=== PATIENT | female | born 1955 | race Caucasian/White ===

== ENCOUNTER → 2018-07-05 14:56 | Outpatient (CLI) | payer MEDICARE, OTHER, SELFPAY ==
--- NOTE | 2018-07-05 15:01 | BI_ITS ---
MAMMOGRAPHY - BILATERAL SCREENING REASON FOR EXAM: Female, 63 years old. Routine annual screening examination. PERTINENT HISTORY: NO FAM HX CURRENT BC X 20 YRS GAINED 10# NO SX NO FAM HX CURRENT BC X 20 YRS GAINED 10# NO SX TECHNIQUE: Digital bilateral breast phillip (3D mammographic acquisition) in the CC and MLO projections. 2-D mediolateral oblique (MLO) and craniocaudad (CC) views of both breasts were obtained. CAD: Full Field Digital Mammography with Computer Added Detection was performed. COMPARISON: Aug 14 2016 7:42am. Aug 13 2015 12:27pm FINDINGS: Breast Composition: There are scattered areas of fibroglandular density. There are no dominant masses or suspicious calcifications. No other significant abnormalities are identified. BI/SCREENING MAMM (CAD), BILAT IMPRESSION: Stable bilateral screening mammogram. Yearly follow-up mammogram recommended. (A) ASSESSMENT CATEGORY: BIRADS Category 2: Benign. A letter regarding these results will be sent to the patient by the facility within 30 days. Approximately 10% of breast cancers are not detected by mammography. A normal mammogram should not delay biopsy of a clinically suspicious abnormality. [id number] Electronically Signed: Amie Barnes MD at 12:50 EDT Tel , Service support ,
--- NOTE | 2018-07-05 15:11 | BD_ITS ---
STUDY: DUAL ENERGY X-RAY ABSORPTIOMETRY / DXA REASON FOR EXAM: Female, 63 years old. Postmenopausal screening TECHNIQUE: Bone Mineral Density (BMD) measurements of lumbar spine and bilateral hips were obtained. COMPARISON: None. FINDINGS: Lumbar Spine (L1-L4): g/cm2 (1.327) / T-score (1.2) / Z-score (2.8) Findings are suggestive of normal bone density with a low fracture risk. Left Femur Total: g/cm2 (1.191) / T-score (1.5) / Z-score (2.7) Left Femoral Neck: g/cm2 (0.979) / T-score (-0.4) / Z-score (1.0) Right Femur Total: g/cm2 (1.272 ) /(T score 2.1) / Z-score (3.3) Right Femoral Neck: g/cm2 (1.032) / T-score (0.0) / Z-score (1.4) BD/Dexa Bone Density Study IMPRESSION: The patient is considered normal as outlined below according to World Js Organization (WHO) criteria with a low fracture risk. Reference Information: The T-score is the number of standard deviations above or below the standard which is normal for young adults at their peak bone mineral density. The World Health Organization (WHO) interprets the T-scores as follows: Above -1 Normal bone density Between -1 and -2.5 Osteopenia Equal to / or below -2.5 Osteoporosis As a practical clinical guideline, osteopenia may be graded as follows: Mild -1 through -1.5 Moderate -1.6 through -2.0 Severe -2.1 through -2.4 The Z-score is the number of standard deviations above or below age-matched controls. A Z-score of less than -1.5 would be considered abnormal. References: 1. NIH Osteoporosis and Related Bone Diseases http://www.osteo.org 2. International Society for Clinical Densitometry http://www.iscd.org 3. National Osteoporosis Foundation http://www.nof.org Electronically Signed: Luke Eldridge MD at 12:31 EDT , Service support ,
== END ==
PROVIDERS: Family Provider Nurse Practitioner; PCP Nurse Practitioner; Referring Provider Nurse Practitioner; Visit Provider Nurse Practitioner
DX: Z78.0 Asymptomatic menopausal state (principal); Z12.31 Encounter for screening mammogram for malignant neoplasm of breast
CPT/HCPCS: 77063; 77067; 77080

== ENCOUNTER → 2019-08-16 07:05 | Outpatient (CLI) | payer MEDICARE, OTHER, SELFPAY ==
--- NOTE | 2019-08-16 07:09 | BI_ITS ---
MAMMOGRAPHY - BILATERAL SCREENING REASON FOR EXAM: Female, 64 years old. Routine annual screening examination. PERTINENT HISTORY: Non-contributory. TECHNIQUE: Digital bilateral breast dwight (3D mammographic acquisition) in the CC and MLO projections. 2-D mediolateral oblique (MLO) and craniocaudad (CC) views of both breasts were obtained. CAD: Full Field Digital Mammography with Computer Added Detection was performed. COMPARISON: Comparison is made with prior study done July 05, 2018 and August 14, 2016. FINDINGS: Breast Composition: There are scattered areas of fibroglandular density. There are no dominant masses or suspicious calcifications. No other significant abnormalities are identified. There has been no significant change since the prior study. BI/SCREEN MAMM (CAD) W/DWIGHT BILAT IMPRESSION: Stable bilateral screening mammogram. Yearly follow-up mammogram recommended. (A) ASSESSMENT CATEGORY: BIRADS Category 1: Negative. A letter regarding these results will be sent to the patient by the facility within 30 days. Approximately 10% of breast cancers are not detected by mammography. A normal mammogram should not delay biopsy of a clinically suspicious abnormality. [id number] Electronically Signed: Kingsley Florez, at 9:07 EST , Service support ,
== END ==
PROVIDERS: Family Provider Nurse Practitioner; PCP Nurse Practitioner; Referring Provider Nurse Practitioner; Visit Provider Nurse Practitioner
DX: Z12.31 Encounter for screening mammogram for malignant neoplasm of breast (principal)
CPT/HCPCS: 77063; 77067

== ENCOUNTER → 2020-08-20 14:17 | Outpatient (CLI) | payer MEDICARE, OTHER, SELFPAY ==
--- NOTE | 2020-08-20 14:21 | BI_ITS ---
MAMMOGRAPHY - BILATERAL SCREENING REASON FOR EXAM: Female, 65 years old. Routine annual screening examination. PERTINENT HISTORY: Non-contributory. TECHNIQUE: Digital bilateral breast dwight (3D mammographic acquisition) in the CC and MLO projections. 2-D mediolateral oblique (MLO) and craniocaudad (CC) views of both breasts were obtained. CAD: Full Field Digital Mammography with Computer Added Detection was performed. COMPARISON: Comparison is made with prior study dated 08/16/2019 and 07/05/2018. FINDINGS: Breast Composition: There are scattered areas of fibroglandular density. There are no dominant masses or suspicious calcifications. Stable benign-appearing bilateral axillary lymph nodes. No other significant abnormalities are identified. There has been no significant change since the prior study. BI/SCREEN MAMM (CAD) W/DWIGHT BILAT IMPRESSION: Stable bilateral screening mammogram. Yearly follow-up mammogram recommended. (A) ASSESSMENT CATEGORY: BIRADS Category 2: Benign. A letter regarding these results will be sent to the patient by the facility within 30 days. Approximately 10% of breast cancers are not detected by mammography. A normal mammogram should not delay biopsy of a clinically suspicious abnormality. [id number] Electronically Signed: Kingsley Florez, at 15:48 EST , Service support ,
--- NOTE | 2020-08-20 14:23 | BD_ITS ---
STUDY: DUAL ENERGY X-RAY ABSORPTIOMETRY / DXA REASON FOR EXAM: Female, 65 years old. 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 COMPARISON: Comparison is made with prior study dated 07/05/2018. FINDINGS: Lumbar Spine (L1-L4): g/cm2 (1.266) / T-score (0.7) / Z-score (2.3) Findings are suggestive of normal bone density with a low fracture risk. Left Femur Total: g/cm2 (1.192) / T-score (1.5) / Z-score (2.8) Left Femoral Neck: g/cm2 (0.945) / T-score (-0.7) / Z-score (0.9) Right Femur Total: g/cm2 (1.194) / T-score (1.5) / Z-score (2.8) Right Femoral Neck: g/cm2 (0.988) / T-score (-0.4) / Z-score (1.2) The T-Scores on the most recent prior examination were: Lumbar Spine (L1-L4): There has been worsening of bone density since the previous examination. Left Femur Total: which represents an improvement of 0.1%. Right Femur Total: which represents a worsening of 6.1%. BD/Dexa Bone Density Study IMPRESSION: The patient is considered normal as outlined below according to World Js Organization (WHO) criteria with a low fracture risk. There has been worsening of bone density since the previous examination. Reference Information: The T-score is the number of standard deviations above or below the standard which is normal for young adults at their peak bone mineral density. The World Health Organization (WHO) interprets the T-scores as follows: Above -1 Normal bone density Between -1 and -2.5 Osteopenia Equal to / or below -2.5 Osteoporosis As a practical clinical guideline, osteopenia may be graded as follows: Mild -1 through -1.5 Moderate -1.6 through -2.0 Severe -2.1 through -2.4 The Z-score is the number of standard deviations above or below age-matched controls. A Z-score of less than -1.5 would be considered abnormal. References: 1. NIH Osteoporosis and Related Bone Diseases www osteo.org 2. International Society for Clinical Densitometry www iscd.org 3. National Osteoporosis Foundation www nof.org Electronically Signed: Kingsley Florez, at 10:41 EST , Service support ,
== END ==
PROVIDERS: PCP Nurse Practitioner; Referring Provider Nurse Practitioner; Visit Provider Nurse Practitioner
DX: Z12.31 Encounter for screening mammogram for malignant neoplasm of breast (principal); Z78.0 Asymptomatic menopausal state
CPT/HCPCS: 77063; 77067; 77080

== ENCOUNTER → 2021-09-02 07:11 | Outpatient (CLI) | payer MEDICARE, OTHER, SELFPAY ==
--- NOTE | 2021-09-02 07:15 | BI_ITS ---
MAMMOGRAPHY - BILATERAL SCREENING REASON FOR EXAM: Female, 66 years old. Routine annual screening examination. PERTINENT HISTORY: Non-contributory. TECHNIQUE: Digital bilateral breast dwight (3D mammographic acquisition) in the CC and MLO projections. 2-D mediolateral oblique (MLO) and craniocaudad (CC) views of both breasts were obtained. CAD: Full Field Digital Mammography with Computer Added Detection was performed. COMPARISON: Comparison is made with prior study 08/20/2020 and 08/16/2019. FINDINGS: Breast Composition: There are scattered areas of fibroglandular density. There are no dominant masses or suspicious calcifications. Stable benign-appearing bilateral axillary lymph nodes. No other significant abnormalities are identified. There has been no significant change since the prior study. BI/SCRN MAMM (CAD)W/DWIGHT BILAT IMPRESSION: Stable bilateral screening mammogram. Yearly follow-up mammogram recommended. (A) ASSESSMENT CATEGORY: BIRADS Category 2: Benign. A letter regarding these results will be sent to the patient by the facility within 30 days. Approximately 10% of breast cancers are not detected by mammography. A normal mammogram should not delay biopsy of a clinically suspicious abnormality. [id number] Electronically Signed: Kingsley Florez MD at 10:45 EST , Service support ,
== END ==
PROVIDERS: PCP Nurse Practitioner; Referring Provider Nurse Practitioner; Visit Provider Nurse Practitioner
DX: Z12.31 Encounter for screening mammogram for malignant neoplasm of breast (principal)
CPT/HCPCS: 77063; 77067

== ENCOUNTER → 2022-09-10 | Outpatient (CLI) | payer MEDICARE, OTHER, SELFPAY ==
--- NOTE | 2022-09-10 09:34 | BI_ITS ---
MAMMOGRAPHY - BILATERAL SCREENING REASON FOR EXAM: Female, 67 years old. Routine annual screening examination. PERTINENT HISTORY: Non-contributory. TECHNIQUE: Digital bilateral breast dwight (3D mammographic acquisition) in the CC and MLO projections. 2-D mediolateral oblique (MLO) and craniocaudad (CC) views of both breasts were obtained. CAD: Full Field Digital Mammography with Computer Added Detection was performed. COMPARISON: Comparison is made with prior study dated 09/02/2021 and 08/20/2020. FINDINGS: Breast Composition: There are scattered areas of fibroglandular density. There are no dominant masses or suspicious calcifications. Stable small benign-appearing bilateral axillary lymph nodes. No other significant abnormalities are identified. There has been no significant change since the prior study. BI/SCRN MAMM (CAD)W/DWIGHT BILAT IMPRESSION: Stable bilateral screening mammogram. Yearly follow-up mammogram recommended. (A) ASSESSMENT CATEGORY: BIRADS Category 2: Benign. A letter regarding these results will be sent to the patient by the facility within 30 days. Approximately 10% of breast cancers are not detected by mammography. A normal mammogram should not delay biopsy of a clinically suspicious abnormality. [id number] Electronically Signed: Kingsley Florez MD at 11:01 EST ,
--- NOTE | 2022-09-10 09:35 | BD_ITS ---
STUDY: DUAL ENERGY X-RAY ABSORPTIOMETRY / DXA REASON FOR EXAM: Female, 67 years old. 627.8Menopausal postmenopausalBONE DENSITY REASON FOR EXAM TECHNIQUE: Bone Mineral Density (BMD) measurements of lumbar spine and bilateral hips were obtained. COMPARISON: Comparison is made with prior study dated 08/20/2020. FINDINGS: Lumbar Spine (L1-L4): g/cm2 (1.019) / T-score (-0.3) / Z-score (1.8) Findings are suggestive of normal bone density with a low fracture risk. Left Femur Total: g/cm2 (1.120) / T-score (1.5) / Z-score (2.9) Left Femoral Neck: g/cm2 (0.849) / T-score (0.0) / Z-score (1.8) Right Femur Total: g/cm2 (1.007) / T-score (0.5) / Z-score (2.0) Right Femoral Neck: g/cm2 (0.747) / T-score (-0.9) / Z-score (0.8) The T-Scores on the most recent prior examination were: Lumbar Spine (L1-L4): There has been worsening of bone density since the previous examination. Left Femur Total: which represents no significant change. . Right Femur Total: which represents a worsening of 10.3%. BD/Dexa Bone Density Study IMPRESSION: The patient is considered normal as outlined below according to World Js Organization (WHO) criteria with a low fracture risk. There has been worsening of bone density since the previous examination. Reference Information: The T-score is the number of standard deviations above or below the standard which is normal for young adults at their peak bone mineral density. The World Health Organization (WHO) interprets the T-scores as follows: Above -1 Normal bone density Between -1 and -2.5 Osteopenia Equal to / or below -2.5 Osteoporosis As a practical clinical guideline, osteopenia may be graded as follows: Mild -1 through -1.5 Moderate -1.6 through -2.0 Severe -2.1 through -2.4 The Z-score is the number of standard deviations above or below age-matched controls. A Z-score of less than -1.5 would be considered abnormal. References: 1. NIH Osteoporosis and Related Bone Diseases www osteo.org 2. International Society for Clinical Densitometry www iscd.org 3. National Osteoporosis Foundation www nof.org Electronically Signed: Kingsley Florez MD at 10:31 EST ,
== END | disposition home or self-care (01) ==
LOC: OPBD 09:27
PROVIDERS: PCP Nurse Practitioner; Referring Provider Nurse Practitioner Family; Visit Provider Nurse Practitioner Family
DX: Z12.31 Encounter for screening mammogram for malignant neoplasm of breast (principal); Z78.0 Asymptomatic menopausal state
CPT/HCPCS: 77063; 77067; 77080

== ENCOUNTER → 2023-09-29 | Outpatient (CLI) | payer MEDICARE, OTHER, SELFPAY ==
--- NOTE | 2023-09-29 09:42 | BI_ITS ---
MAMMOGRAPHY - BILATERAL SCREENING 3-D TOMOSYNTHESIS REASON FOR EXAM: Female, 68 years old. Annual routine screening mammogram. PERTINENT HISTORY: No significant family history. TECHNIQUE: 2-D mammograms and 3-D Tomosynthesis of the breast (s) were performed. CAD was performed. COMPARISON: September 10, 2022, September 02, 2021 FINDINGS: Stable scattered fibroglandular densities. Stable normal lymph node. No dominant masses, suspicious microcalcifications, asymmetries, skin thickening or nipple retraction. BI/SCRN MAMM (CAD)W/DWIGHT BILAT IMPRESSION: No interval change and no mammographic signs of malignancy. Routine yearly mammogram recommended. ASSESSMENT CATEGORY: BIRADS Category 2: Benign. A letter regarding these results will be sent to the patient by the facility within 30 days. FOLLOW UP RECOMMENDATION: Yearly follow up mammogram recommended. (A) Approximately 10% of breast cancers are not detected by mammography. A normal mammogram should not delay biopsy of a clinically suspicious abnormality. Electronically Signed: Jovan Jose MD at 13:44 EST ,
== END | disposition home or self-care (01) ==
LOC: OPBI 09:41
PROVIDERS: PCP Nurse Practitioner Family; Referring Provider Nurse Practitioner Family; Visit Provider Nurse Practitioner Family
DX: Z12.31 Encounter for screening mammogram for malignant neoplasm of breast (principal)
CPT/HCPCS: 77063; 77067

== ENCOUNTER → 2024-05-16 | Outpatient (CLI) | payer MEDICARE, OTHER, SELFPAY | END | disposition home or self-care (01) | LOC: PSN 07:43 | PROVIDERS: PCP Nurse Practitioner Family; Referring Provider Nurse Practitioner Family; Visit Provider Nurse Practitioner Family | DX: R06.09 Other forms of dyspnea (principal) | CPT/HCPCS: 94060; 94726; 94729 ==

== ENCOUNTER → 2024-10-10 | Outpatient (CLI) | payer MEDICARE, OTHER, SELFPAY | END | disposition home or self-care (01) | LOC: SL 20:09 | PROVIDERS: PCP Nurse Practitioner Family; Visit Provider Nurse Practitioner Family | DX: G47.10 Hypersomnia, unspecified (principal); R40.0 Somnolence; G47.33 Obstructive sleep apnea (adult) (pediatric) | CPT/HCPCS: 95810 ==

== ENCOUNTER → 2024-10-31 | Outpatient (CLI) | payer OTHER, MEDICARE, SELFPAY | END | disposition home or self-care (01) | LOC: SL 20:06 | PROVIDERS: PCP Nurse Practitioner Family; Referring Provider Nurse Practitioner Family; Visit Provider Nurse Practitioner Family | DX: G47.33 Obstructive sleep apnea (adult) (pediatric) (principal) | CPT/HCPCS: 95811 ==

== ENCOUNTER → 2024-11-14 | Outpatient (CLI) | payer OTHER, MEDICARE, SELFPAY ==
--- NOTE | 2024-11-14 14:53 | BI_ITS ---
PROCEDURE: SCRN MAMM (CAD)W/DWIGHT BILAT REASON FOR EXAM: F, Age 69 y/o, routine mammographic follow-up. No family history. TECHNIQUE: Bilateral screening digital breast tomosynthesis with 2D and 3D images. Computer aided detection. COMPARISON: Prior exam(s) dating back to September 29, 2023.. FINDINGS: There are scattered areas of fibroglandular density. Stable examination. Stable left fat containing axillary lymph nodes. No suspicious masses, areas of developing architectural distortion, or suspicious calcifications. BI/SCRN MAMM (CAD)W/DWIGHT BILAT IMPRESSION: BI-RADS 2: BENIGN. RECOMMEND ANNUAL MAMMOGRAPHIC SCREENING. Follow-up code: Routine Follow-up The patient will be notified of the results by letter. Reading Location: [place] [id number]
--- NOTE | 2024-11-14 14:57 | BD_ITS ---
PROCEDURE: DEXA BONE DENSITY STUDY REASON FOR EXAM: F, age 69 y/o . Postmenopausal. TECHNIQUE: DEXA scan of the lumbar spine and both hips. COMPARISON: Comparison is made with prior study dated September 10, 2022. FINDINGS: Lumbar Spine (L1-L4): g/cm2 (1.049)/T-score (-0.5)/Z-score (1.8) findings are suggestive of normal with a low fracture risk. Left Femur Total: g/cm2 (1.164)/T-score (1.8)/Z-score (3.4) Left Femoral Neck: g/cm2 (0.685)/T-score (-1.5)/Z-score (0.4) Right Femur Total: g/cm2 (1.095)/T-score (1.3)/Z-score (2.8) Right Femoral Neck: g/cm2 (0.774)/T-score (-0.7)/Z-score (1.2) The T-Scores on the most recent prior examination were: Lumbar Spine (L1-L4): There has been loss of bone density since the previous examination. Left Femur Total: Improvement of 3.9%. Right Femur Total: Improvement of 8.7%. BD/Dexa Bone Density Study IMPRESSION: The patient is considered osteopenic as outlined below according to World Js Organization (WHO) criteria with a low fracture risk. There has been improvement of bone density since the previous exammeme curry Reading Location: [place] [address]
== END | disposition home or self-care (01) ==
LOC: OPBD 14:53
PROVIDERS: PCP Nurse Practitioner Family; Referring Provider Nurse Practitioner Family; Visit Provider Nurse Practitioner Family
DX: Z12.31 Encounter for screening mammogram for malignant neoplasm of breast (principal); Z78.0 Asymptomatic menopausal state
CPT/HCPCS: 77063; 77067; 77080

== ENCOUNTER → 2024-11-15 | Outpatient (CLI) | payer MEDICARE, SELFPAY ==
--- NOTE | 2024-11-15 11:15 | ECHOCS_ITS ---
Reason For Study Reason For Study: SOB Procedure This was a 2D Doppler, Color Flow transthoracic echocardiogram. The study was technically difficult. Contrast injection was performed. Exam performed in department. Left Ventricle Normal LV size. Mild concentric left ventricular hypertrophy. Focal area of thickening noted near the apex of the ventricle. The left ventricular ejection fraction is 30 %. There is severe global hypokinesis of the left ventricle. Mid-Inferior: Akinetic. Right Ventricle Normal RV size. Normal systolic function. Atria The left atrium is mildly enlarged. Normal right atrium. Mitral Valve Normal mitral valve. Tricuspid Valve Normal tricuspid valve. Aortic Valve Trisinus/trileaflet aortic valve. Pulmonic Valve The pulmonic valve is not well visualized. Great Vessels Mildly dilated aortic root. The pulmonary artery is normal size. Inferior vena cava collapse with respiration. Pericardium/Pleural No pericardial effusion. Medication 22 gauge I.V. with prn adaptor inserted into right arm. Diluted definity 2ml given slow IV push to enhance endocardial definition. MMode/2D Measurements & Calculations LVIDd: 5.5 cm IVSd: 1.3 cm Ao root diam: 3.9 cm LVIDs: 4.6 cm LVPWd: 1.3 cm FS: 16.7 % LAV(MOD-bp): 76.0 ml LVAd ap4: 40.6 cm2 LVAd ap2: 37.2 cm2 LAV(MOD-bp) Indexed: 38.4 ml/m2 LVLd ap4: 8.3 cm LVLd ap2: 7.6 cm LAV(MOD-sp2): 72.8 ml EDV(MOD-sp4): 164.2 ml EDV(MOD-sp2): 150.3 ml LAV(MOD-sp4): 71.3 ml EDV(sp4-el): 168.9 ml EDV(sp2-el): 154.5 ml LVAs ap4: 34.1 cm2 LVAs ap2: 26.2 cm2 LVLs ap4: 7.7 cm LVLs ap2: 6.6 cm ESV(MOD-sp4): 121.0 ml ESV(MOD-sp2): 85.3 ml ESV(sp4-el): 128.4 ml ESV(sp2-el): 88.1 ml EF(MOD-sp4): 26.3 % EF(MOD-sp2): 43.3 % EF(sp4-el): 24.0 % SV(MOD-sp4): 43.2 ml SV(MOD-sp2): 65.0 ml SV(sp4-el): 40.5 ml SI(MOD-sp4): 21.8 ml/m2 SI(MOD-sp2): 32.8 ml/m2 LA A4 area: 23.7 cm2 LA dimension(2D): 4.8 cm RA A4 area: 20.9 cm2 Time Measurements MV dec time: 0.27 sec Doppler Measurements & Calculations MV E max daniel: 56.1 cm/sec Lat Peak E' Daniel: 5.2 cm/sec Med Peak E' Daniel: 5.9 cm/sec MV A max daniel: 47.0 cm/sec E/E' lat: 10.9 E/E' med: 9.5 MV E/A: 1.2 MV V2 max: 76.7 cm/sec MV P1/2t max daniel: 76.7 cm/sec Ao V2 max: 120.1 cm/sec MV max P.4 mmHg MV P1/2t: 84.8 msec Ao max P.8 mmHg MV V2 mean: 41.8 cm/sec MV dec slope: 264.8 cm/sec2 Ao V2 mean: 87.4 cm/sec MV mean P.81 mmHg MVA(P1/2t): 2.6 cm2 Ao mean P.5 mmHg MV V2 VTI: 22.8 cm Ao V2 VTI: 24.9 cm AV (velocity ratio): 0.78 LV V1 max: 97.8 cm/sec LV V1 max P.8 mmHg LV V1 mean P.4 mmHg LV V1 mean: 74.4 cm/sec LV V1 VTI: 19.3 cm ECHO/Echo Complete W/ Contrast Interpretation Summary Normal LV size. Mild concentric left ventricular hypertrophy. The left ventricular ejection fraction is 30 %. Focal area of thickening noted near the apex of the ventricle. Contrast injection was performed. Ordering Physician: Elaine Virk Referring Physician: Elaine Virk Performed By: Cesar Jules RCS
[2024-11-15 12:55] VITALS: PULSE 106; PULSE 112; PULSE 118; PULSE 60; PULSE 65; PULSE 78; PULSE 79; PULSE 88; O2SAT 85; O2SAT 90; O2SAT 94; O2SAT 95; O2SAT 96
--- NOTE | 2024-11-15 12:59 | CPS ---
Patient started testing on room air, SpO2 94%, does not have oxygen at home. Right before the 3rd minute patient desaturated to 85% with heart rate of 106. Patient had walked about 450-500 ft at this time. Stopped patient and placed patient on 2 lpm nasal cannula. Patient was visibly short of breath with a slight audible wheeze. SpO2 recovered quickly but heart rate increased to 123 before starting to come back down. Patient finished the second half of the walk on 2 lpm O2, walked about the same distance and maintained an SpO2 of 94%.
--- NOTE | 2024-11-20 12:02 | PCM.PSN.6M ---
PSN 6 Minute Walk Test 6 Minute Walk Test 6 Minute Walk Test: 6 Minute Walk Test PSN:6-Minute Walk Test Start: 11/15/24 12:54 Freq: Status: Active Protocol: [id number] Document 11/15/24 12:55 MARITASTEPHANIE (Rec: 11/15/24 13:05 DONTE [id number]) 6 Minute Walk Test Date Performed 11/15/24 Time Performed 12:15 Height 5 ft Weight: 235 lb Weight in Pounds 235.[address]: Elaine Vrik Assistive device None used: Pre-test Oxygen Delivery Room Air Method Pulse Ox (%) 94 Pulse Rate (60-100 60 beats/min) Dyspnea Dez Scale ( 0 0-10) Exertion Dez Scale 6 (6-20) 1st minute Oxygen Delivery Room Air Method Pulse Ox (%) 94 Pulse Rate (60-100 79 beats/min) 2nd minute Oxygen Delivery Room Air Method Pulse Ox (%) 90 Pulse Rate (60-100 88 beats/min) 3rd minute Oxygen Delivery Room Air Method Pulse Ox (%) 85 Pulse Rate (60-100 106 H beats/min) Dyspnea Dez Scale ( 5 0-10) Reported Symptoms Increased Work of Breathing 4th minute Oxygen Flow Rate (L/ 2 min) (L/min) Oxygen Delivery Nasal Cannula Method Pulse Ox (%) 95 Pulse Rate (60-100 78 beats/min) 5th minute Oxygen Flow Rate (L/ 2 min) (L/min) Oxygen Delivery Nasal Cannula Method Pulse Ox (%) 94 Pulse Rate (60-100 112 H beats/min) 6th minute Oxygen Flow Rate (L/ 2 min) (L/min) Oxygen Delivery Nasal Cannula Method Pulse Ox (%) 94 Pulse Rate (60-100 118 H beats/min) Dyspnea Dez Scale ( 4 0-10) Exertion Dez Scale 12 (6-20) Post-test Oxygen Flow Rate (L/ 2 min) (L/min) Oxygen Delivery Nasal Cannula Method Pulse Ox (%) 96 Pulse Rate (60-100 65 beats/min) Full Laps Walked 16 Partial Lap, Number 10 of Tiles Walked Total Distance 954 Walked (ft) 11/15/24 12:59 Cardiopulmonary Services by Abbie Alejandra Patient started testing on room air, SpO2 94%, does not have oxygen at home. Right before the 3rd minute patient desaturated to 85% with heart rate of 106. Patient had walked about 450-500 ft at this time. Stopped patient and placed patient on 2 lpm nasal cannula. Patient was visibly short of breath with a slight audible wheeze. SpO2 recovered quickly but heart rate increased to 123 before starting to come back down. Patient finished the second half of the walk on 2 lpm O2, walked about the same distance and maintained an SpO2 of 94%. Initialized on 11/15/24 12:59 - END OF NOTE Interpretation Interpretation: The patient ambulated 954 feet over the course of 6 minutes beginning on room air without assistive devices. Pretesting oxygen saturation was noted to be 94% on room air. With ambulation, the andrew oxygen saturation was 85%, requiring the initiation of 2 L/min of supplemental oxygen to maintain appropriate saturations. Recommendations Recommendations: 2 L/min of supplemental oxygen should be utilized with exertion.
== END | disposition home or self-care (01) ==
PROVIDERS: PCP Nurse Practitioner Family; Referring Provider Nurse Practitioner Family; Visit Provider Nurse Practitioner Family
DX: R06.02 Shortness of breath (principal)
CPT/HCPCS: 93306; 94618; Q9957; A4216; C8929

== ENCOUNTER → 2024-11-28 | Outpatient (CLI) | payer MEDICARE, SELFPAY | END | disposition home or self-care (01) | LOC: SL 10:06 | PROVIDERS: PCP Nurse Practitioner Family; Visit Provider Nurse Practitioner Family | DX: Z46.89 Encounter for fitting and adjustment of other specified devices (principal) ==

== ENCOUNTER → 2024-12-05 | Outpatient (CLI) | payer MEDICARE, SELFPAY ==
[2024-12-05 09:48] LABS: ALB/GLOB Ratio 1.6 RATIO (0.9-2.4); AST(SGOT) 17 U/L (<=31); Alanine Aminotransfer ALT/SGPT 15 U/L (<=34); Albumin, Serum 4.1 g/dL (3.4-4.8); Alkaline Phosphatase 68 U/L (35-104); Anion Gap 11 (5-15); BUN 11 mg/dL (4-19); BUN/Creat Ratio 16.7 RATIO (10-20); Calcium,Total 9.1 mg/dL (7.6-11.0); Carbon Dioxide 26.9 mmol/L (21.0-32.0); Chloride 105 mmol/L (98-108); Creatinine, Serum 0.68 mg/dL (0.70-1.20); EST Glomerular Filtration Rate 93 (>60); Globulin 2.6 g/dL (2.2-4.2); Glucose 115 mg/dL (70-99); Protein, Total 6.6 g/dL (5.9-8.4); Sodium Level 142 mmol/L (133-145); Total Bilirubin 0.83 mg/dL (0.00-1.30)
[2024-12-05 11:55] LABS: Pro- Brain NATRIURETIC PEPTIDE 1191 pg/mL (<=900)
== END | disposition home or self-care (01) ==
LOC: LAB 08:36
PROVIDERS: PCP Nurse Practitioner Family; Referring Provider Internal Medicine Cardiovascular Disease; Visit Provider Internal Medicine Cardiovascular Disease
DX: E03.9 Hypothyroidism, unspecified (principal); R06.02 Shortness of breath
CPT/HCPCS: 36415; 80053; 83880; 84443

== ENCOUNTER → 2024-12-26 | Outpatient (CLI) | payer MEDICARE, SELFPAY ==
--- NOTE | 2024-12-26 10:42 | STRESSREP ---
Stress Test Report Pharmacologic myocardial perfusion stress test. 69-year-old lady with a history of cardiomyopathy Resting EKG demonstrates atrial fibrillation with a rate of 73 bpm. Resting blood pressure is 118/76 mmHg. 0.4 mg of regadenoson was infused per usual protocol followed by rapid intravenous saline flush injection. Continuous EKG monitoring was performed. The maximum heart rate was 88 bpm which was 59% of max impacted heart rate the maximum workload was 1 metabolic equivalent. At rest there were no ST or T wave changes noted to suggest ischemia and at peak infusion nonspecific ST changes were noted which did not meet the criteria for ischemia. No clinical angina is noted. The final blood pressure was 116/70 mmHg. Myocardial perfusion protocol. 14.7 mCi of technetium 99m sestamibi was injected at rest. 0.4 mg of regadenoson was infused per usual protocol. At peak infusion 44.7 mCi of technetium 99m sestamibi was injected stress images were obtained stress and rest images were reconstructed and compared in the short axis vertical long and horizontal long axis. Gated images were also obtained. Perfusion SPECT analysis: Review of the stress images demonstrate normal uptake of tracer noted in all areas of the myocardium. The resting images similar demonstrated normal uptake of tracer noted in all areas of the myocardium. No areas of reversibility are noted to suggest ischemia and no previous infarct is noted. Gated SPECT analysis: The gated ejection fraction is 32%. Conclusion: Normal pharmacologic myocardial perfusion stress test. Cardiomyopathy present with reduced ejection fraction.
== END | disposition home or self-care (01) ==
LOC: CVS 07:15
PROVIDERS: PCP Nurse Practitioner Family; Referring Provider Physician Assistant Medical; Visit Provider Physician Assistant Medical
DX: R06.02 Shortness of breath (principal); I50.20 Unspecified systolic (congestive) heart failure; I48.91 Unspecified atrial fibrillation
CPT/HCPCS: 78452; 93017; A9500; A4216; J2785

== ENCOUNTER → 2025-01-05 | Outpatient (CLI) | payer MEDICARE, SELFPAY ==
--- NOTE | 2025-01-05 10:45 | RAD_ITS ---
EXAM: XR Chest, 2 Views CLINICAL INDICATION: PREPROCEDURE TECHNIQUE: Frontal and lateral views of the chest. COMPARISON: No relevant prior studies available. FINDINGS: LUNGS AND PLEURAL SPACES: See below. HEART: Cardiomegaly with mild congestion. MEDIASTINUM: Unremarkable. Normal mediastinal contour. BONES/JOINTS: Unremarkable. No acute fracture. RAD/Chest PA and Lateral IMPRESSION: Cardiomegaly with mild congestion. Reading Location: [facility]
[2025-01-05 12:42] LABS: Anion Gap 11 (5-15); BUN 16 mg/dL (4-19); BUN/Creat Ratio 20.2 RATIO (10-20); Calcium,Total 10.2 mg/dL (7.6-11.0); Carbon Dioxide 25.8 mmol/L (21.0-32.0); Chloride 104 mmol/L (98-108); Creatinine, Serum 0.77 mg/dL (0.70-1.20); EST Glomerular Filtration Rate 83 (>60); Glucose 121 mg/dL (70-99); Potassium 4.8 mmol/L (3.3-5.1); Sodium Level 141 mmol/L (133-145)
== END | disposition home or self-care (01) ==
LOC: LAB 10:27
PROVIDERS: PCP Nurse Practitioner Family; Referring Provider Physician Assistant Medical; Visit Provider Physician Assistant Medical
DX: I48.91 Unspecified atrial fibrillation (principal)
CPT/HCPCS: 36415; 71046; 80048

== ENCOUNTER 2025-01-09 06:52 | Day surgery (SDC) | payer MEDICARE, SELFPAY ==
[2025-01-08 12:23] VITALS: BMI 43.0
--- NOTE | 2025-01-09 08:39 | PCM.OP.PRO2 ---
Problems Associated Problem List Diagnoses (1) Atrial fibrillation: Non-invasive Procedural Procedure Information Date of Procedure: 01/09/25 Pre-Procedure Diagnosis: Atrial fibrillation Post-Procedure Diagnosis: Same Procedure Performed:: DC cardioversion Procedure Time Out: :58 Procedure Start Time: :02 Procedure Stop Time: 08:03 Special Medications: 4 mg of intravenous etomidate Description of procedure: Patient was brought to the noninvasive lab in the postabsorptive nonsedated state. Informed consent was obtained. Anterior-posterior pads were applied. The patient was seen by Dr. Isaac of the critical care division. 300 J of synchronized DC cardioversion biphasic energy were applied with prompt reversal to sinus rhythm. Patient tolerated the procedure well. Procedure findings: Successful conversion from atrial fibrillation to sinus rhythm.
--- NOTE | 2025-01-09 09:08 | PCM.OP.PRO2 ---
Procedures Pulmonary Pulmonary Procedures /Diagnostic Testin Con Sedation Non-invasive Procedural Procedure Information Date of Procedure: 01/09/25 Description of procedure: CONSCIOUS SEDATION REPORT DATE OF SERVICE: January 09, 2025 BRIEF HISTORY OF PRESENT ILLNESS: The patient is a 69-year-old female who presented to [facility] to undergo an elective outpatient cardioversion due to underlying atrial fibrillation. The patient has never previously undergone a cardioversion. She denies any prior anesthetic complications. She does have a known history of obstructive sleep apnea and is currently prescribed nocturnal PAP therapy. She has a very remote smoking history. The patient's last surface echocardiogram demonstrated an ejection fraction of approximately 30%. She is systemically anticoagulated on Eliquis. PHYSICAL EXAMINATION: VITAL SIGNS: Reviewed and were acceptable. GENERAL: The patient is a female, in no apparent distress, speaking in full sentences. HEENT: Normocephalic, atraumatic. Mucous membranes are moist and pink. Good mouth opening noted. Trachea is midline. Good neck mobility. MP II CHEST: S1, S2 irregularly irregular. No murmurs, rubs or gallops were noted. LUNGS: Clear to auscultation bilaterally without appreciable wheezes, rales or rhonchi. ABDOMEN: Soft, nontender, nondistended. Positive bowel sounds. EXTREMITIES: There is no clubbing, cyanosis or edema. ASA Class: II DESCRIPTION OF PROCEDURE: After confirmation of informed consent, the patient's anesthesia plan was reviewed in detail. Etomidate was chosen. Risks and benefits were reviewed and the patient agreed to proceed. At 0829, the patient was given 4 mg of etomidate. The patient achieved an appropriate level of sedation and was given a 300 joule synchronized cardioversion by Dr. Kong at the bedside. This was successful in achieving normal sinus rhythm. The patient was monitored until 0843, at which time she reached her baseline mental status and function. The patient tolerated the procedure well. COMPLICATIONS: None ESTIMATED BLOOD LOSS: None RECOMMENDATIONS: Okay to recover in usual fashion.
== END 2025-01-09 09:55 | disposition home or self-care (01) ==
PROVIDERS: PCP Nurse Practitioner Family; Referring Provider Internal Medicine Cardiovascular Disease; Visit Provider Internal Medicine Cardiovascular Disease
DX: I48.91 Unspecified atrial fibrillation (principal); I11.0 Hypertensive heart disease with heart failure; I50.20 Unspecified systolic (congestive) heart failure; Z68.41 Body mass index [BMI] 40.0-44.9, adult; E11.9 Type 2 diabetes mellitus without complications; E78.5 Hyperlipidemia, unspecified; E03.9 Hypothyroidism, unspecified; F32.A Depression, unspecified; E66.9 Obesity, unspecified; G47.33 Obstructive sleep apnea (adult) (pediatric); Z79.01 Long term (current) use of anticoagulants; Z79.899 Other long term (current) drug therapy; Z79.84 Long term (current) use of oral hypoglycemic drugs; Z87.891 Personal history of nicotine dependence
CPT/HCPCS: 92960; 93005

== ENCOUNTER → 2025-05-01 | Outpatient (CLI) | payer MEDICARE, SELFPAY ==
--- NOTE | 2025-05-01 12:48 | ECHOLC_ITS ---
Reason For Study Reason For Study: CONGESTIVE HEART FAILURE Procedure This was a limited 2D transthoracic echocardiogram. The study was technically difficult. Contrast injection was performed. Exam performed in department. Left Ventricle Normal left ventricle. The left ventricular ejection fraction is 30 %. There is moderate to severe global hypokinesis of the left ventricle. Mid-Inferior: Akinetic. Right Ventricle Normal RV size. Normal systolic function. Atria Normal left atrium. Normal right atrium. Mitral Valve Normal mitral valve. Tricuspid Valve Normal tricuspid valve. Aortic Valve The aortic valve is not well visualized. Great Vessels Normal aortic root. The pulmonary artery is normal size. Inferior vena cava collapse with respiration. Pericardium/Pleural No pericardial effusion. Medication 22 gauge I.V. with prn adaptor inserted into right arm. Diluted definity 3ml given slow IV push to enhance endocardial definition. MMode/2D Measurements & Calculations LVIDd: 5.7 cm IVSd: 1.1 cm LAV(MOD- bp): 52.4 ml LVIDs: 4.0 cm LVPWd: 1.1 cm LAV(MOD- bp) Indexed: 26.9 ml/m2 RVDd: 3.4 cm FS: 29.2 % LAV(MOD- sp2): 57.1 ml LAV(MOD- sp4): 47.1 ml SV(MOD- sp4): 44.0 ml LVAd ap4: 34.0 cm2 LVAd ap2: 38.0 cm2 LVLd ap4: 7.5 cm LVLd ap2: 7.8 cm SI(MOD- sp4): 22.6 ml/m2 EDV(MOD-sp4): 126.0 ml EDV(MOD-sp2): 149.8 ml EDV(sp4-el): 131.0 ml EDV(sp2-el): 157.1 ml LVAs ap4: 25.2 cm2 LVAs ap2: 28.8 cm2 LVLs ap4: 6.5 cm LVLs ap2: 6.8 cm ESV(MOD-sp4): 82.0 ml ESV(MOD-sp2): 99.0 ml ESV(sp4-el): 83.0 ml ESV(sp2-el): 103.0 ml EF(MOD-sp4): 34.9 % EF(MOD-sp2): 33.9 % EF(sp4-el): 36.7 % SV(MOD-sp2): 50.8 ml SV(sp4-el): 48.0 ml LA A4 area: 18.7 cm2 SI(MOD-sp2): 26.1 ml/m2 LA dimension(2D): 4.3 cm TAPSE: 2.1 cm RA A4 area: 12.6 cm2 Doppler Measurements & Calculations Lat Peak E' Daniel: 6.0 cm/sec Med Peak E' Daniel: 5.9 cm/sec ECHO/Echo Limited w/Contrast Interpretation Summary The left ventricular ejection fraction is 30 %. Mid-Inferior: Akinetic. There is moderate to severe global hypokinesis of the left ventricle. Contrast injection was performed. Ordering Physician: Meli Cartwright Referring Physician: Meli Cartwright Performed By: Florinda Alcazar RDCS
== END | disposition home or self-care (01) ==
LOC: CVS 12:47
PROVIDERS: PCP Nurse Practitioner Family; Referring Provider Physician Assistant Medical; Visit Provider Physician Assistant Medical
DX: I51.9 Heart disease, unspecified (principal)
CPT/HCPCS: 93308; Q9957; A4216; C8924

== ENCOUNTER 2025-07-27 08:12 | Observation (INO) | payer MEDICARE, SELFPAY ==
--- NOTE | 2025-07-17 09:30 | RAD_ITS ---
PROCEDURE: CHEST PA AND LATERAL 07/17/2025 REASON FOR EXAM: PREPROCEDURE TECHNIQUE: Procedure Code: RADCXR Modality: DX Procedure: CHEST PA AND LATERAL COMPARISON: 01/05/2025 FINDINGS: Right lower lobe opacity not excluded. Bibasilar subsegmental atelectasis. Mild pulmonary vascular congestion. No pleural effusion or pneumothorax. Cardiac silhouette is within normal limits. Calcified aortic arch. No acute fractures. [id number] thoracic dextroscoliosis. RAD/Chest PA and Lateral IMPRESSION: Right lower lobe opacity not excluded. Bibasilar subsegmental atelectasis. Mi ld pulmonary vascular congestion. Reading Location: [id number]
[2025-07-17 09:41] LABS: Mucous, Urine 0 SEEN /hpf (<or=2+)
[2025-07-17 10:33] LABS: Hematocrit 43.9 % (37-47); Hemoglobin 15.0 g/dL (12.0-15.0); Mean Corp Hgb Conc 34.2 g/dL (32-36); Mean Corpuscular Volume 88.3 fL (81-99); Mean Platelet Vol. 9.1 fl (6.2-12.0); Platelet Count 255 K/mm3 (150-450); RBC Distribution Width CV 13.1 % (11.6-14.6); RBC Distribution Width SD 42.5 fl (35.1-43.9); Red Blood Count 4.97 M/mm3 (4.2-5.4); White Blood Count 6.3 K/mm3 (4.4-11.0)
[2025-07-17 10:49] LABS: Color, Urine Yellow (Yellow); Glucose, Dipstick 1000 mg/dl (Normal); Ketone-Dipstick Negative (Negative); Leukocyte Esterase-Dipstick 500 /ul (Negative); Nitrite-Dipstick Positive (Negative); Occult Blood-Urine 25 /ul (Negative); Protein-Dipstick 15 mg/dl (Negative); Specific Gravity, Urine 1.020 (1.002-1.030); Urine Bilirubin Dipstick Negative (Negative)
[2025-07-17 10:55] LABS: Anion Gap 9 (5-15); BUN 19 mg/dL (4-19); BUN/Creat Ratio 24.6 RATIO (10-20); Calcium,Total 10.1 mg/dL (7.6-11.0); Carbon Dioxide 29.4 mmol/L (21.0-32.0); Chloride 102 mmol/L (98-108); Glucose 108 mg/dL (70-99); Potassium 4.5 mmol/L (3.3-5.1)
[2025-07-17 11:09] LABS: Red Blood Cells-Urine 5-10 SEEN /hpf (0-5); Squamous Epithelial Cells - UA 5-10 SEEN /hpf (5-10)
[2025-07-17 11:37] LABS: Prothrombin Time (Protime)PT. 17.0 SECONDS (11.7-14.9)
[2025-07-25 14:14] VITALS: BMI 42.5
[2025-07-26] VITALS (10 sets, daily range): BP systolic 105–126; BP diastolic 53–100; PULSE 59–70; RESP 14–18; TEMP 36.7–36.8; O2SAT 93–98; BMI 43.6
--- NOTE | 2025-07-26 12:26 | EX.DEFIBPR_ITS ---
Defibrillator Procedure Note Defibrillator Procedure Note [Name] is a [age] year old [sex] who has a past medical history of [ ], who pres ented to the [place] [facility] lab for further evaluation regarding [ ]. The patient was brought to the electrophysiology laboratory in a fasting state. Sedation provided by [ ]. A venogram of the [ ] axillary vein was performed [ ]. The [ ] shoulder area was prepped and draped in the usual manner and the skin and subcutaneous tissues below the [ ] clavicle were infiltrated with 1% lidocaine for local anesthesia. The skin was sharply incised. Electrocautery and blunt dissection were carried out to the level of the pectoralis fascia and extended inferomedially to create a pocket for the pulse generator. Access to the [ ] axillary vein was obtained x[ ] with a [ ] needle using real-time fluoroscopic [ ] guidance. [ ] guide wires were advanced to the right atrium and peel-away introducer sheaths were used to insert the leads. The right ventricular lead was placed in the [ ]. The right atrial lead was placed in the right atrial appendage. The left ventricular lead was placed in the [ ]. The leads were tested with a pacing systems analyzer and the results are noted above. The leads were then anchored in place with [2-0 Neurolon] sutures around their suture sleeve and connected to the pulse generator. The device was noted to function appropriately. The pocket was noted to have an absence of active bleeding. The pulse generator was placed in the pocket and sutured to the pre- pectoral fascia. The pocket was then irrigated with antibiotic solution. The incision was closed with two layers of [2-0 Vicryl] and a subcuticular closure of [4-0 Vicryl]. The incision was dressed [with Aquacel]. [Tyrx pouch was utilized]. Conclusions Successful implantation of [ ] with adequate pacing threshold, sensing and lead impedance. Recommendations 1. Routine follow-up in the device clinic. 2. Remove outer dressing after 48 hours. Leave steri-strips intact for 7-10 days, then remove if it does not fall off by itself. 3. Device follow up as scheduled. 4. Hold anticoagulation for 24 hours (No heparin IV or NOAC, ok to continue warfarin). 5. The patient can continue to follow-up with [ ].
--- NOTE | 2025-07-26 12:26 | EX.DEFIBPROC ---
Defibrillator Procedure Note Defibrillator Procedure Note Judi Ponce is a 70 year old female who has a past medical history of an NCIM, AF, who presented to the [facility] for further evaluation regarding implant of a primary prevention ICD. She has been on 3 months of optimal GDMT with no improvement in her EF, which remains at 30%. The patient was brought to the electrophysiology laboratory in a fasting state. Sedation provided by nursing staff. A venogram of the left axillary vein was performed. The left shoulder area was prepped and draped in the usual manner and the skin and subcutaneous tissues below the left clavicle were infiltrated with 1% lidocaine for local anesthesia. The skin was sharply incised. Electrocautery and blunt dissection were carried out to the level of the pectoralis fascia and extended inferomedially to create a pocket for the pulse generator. Access to the left axillary vein was obtained x2 with a Doss needle using real-time fluoroscopic guidance. 2 guide wires were advanced to the right atrium and peel-away introducer sheaths were used to insert the leads. The right ventricular lead was placed in the RV apical septum. The right atrial lead was placed in the right atrial appendage. The leads were tested with a pacing systems analyzer and the results are noted above. The leads were then anchored in place with silk sutures around their suture sleeve and connected to the pulse generator. The device was noted to function appropriately. The pocket was noted to have an absence of active bleeding. The pulse generator was placed in the pocket and sutured to the pre-pectoral fascia. The pocket was then irrigated with antibiotic solution. The incision was closed with two layers of 2-O vicryl, as well as an additional layer of interrupted sutures and a subcuticular closure of 4-0 Vicryl. The incision was dressed with Aquacel. Conclusions Successful implantation of dual chamber ICD with adequate pacing threshold, sensing and lead impedance. Recommendations 1. Routine follow-up in the device clinic. 2. Aquacell to remain on for 1 week. 3. Device follow up as scheduled. 4. Hold anticoagulation for 4 days (No heparin IV or NOAC, ok to continue warfarin). 5. The patient can continue to follow-up with [facility].
--- NOTE | 2025-07-26 14:35 | RAD_ITS ---
PROCEDURE: CHEST PA AND LATERAL 07/26/2025 REASON FOR EXAM: EVALUATE LEAD POSITION, POST PERMANENT ICD PLCMNT TECHNIQUE: Procedure Code: RADCXR Modality: DX Procedure: CHEST PA AND LATERAL COMPARISON: Prior study dated July 17, 2025. FINDINGS: Hardware: Left-sided ICD is seen. The tips of the electrodes are in expected position. Heart: Heart size is mildly enlarged. Mediastinum: The mediastinal contour is unremarkable. Lungs: The lungs are clear. Bones: Degenerative changes are identified within the thoracic spine. RAD/Chest PA and Lateral IMPRESSION: Status post left ICD placement. The tip of the electrodes are in good position . Reading Location: [facility]
[2025-07-26] MEDS: 0.9% Saline Lock 10 ML Syringe IV (22:03)
[2025-07-26] MEDS: Heparin Injection (Vial) 5,000 UNIT/ML VIAL 5000 UNIT SC (22:03)
[2025-07-27 03:50] VITALS: BP 126/74; PULSE 60; RESP 16; TEMP 36.6; O2SAT 93
[2025-07-27] MEDS: Heparin Injection (Vial) 5,000 UNIT/ML VIAL 5000 UNIT SC (05:13)
[2025-07-27 09:04] VITALS: BP 113/71; PULSE 69; RESP 16; TEMP 36.4; O2SAT 98
== END 2025-07-27 10:57 | disposition home or self-care (01) ==
LOC: CLSP 08:22 → PCU 08:22
PROVIDERS: Physician Assistant Medical; Admitting Provider Internal Medicine Cardiovascular Disease; PCP Nurse Practitioner Family; Referring Provider Internal Medicine; Visit Provider Internal Medicine
DX: Z45.02 Encounter for adjustment and management of automatic implantable cardiac defibrillator (principal); I11.0 Hypertensive heart disease with heart failure; I50.23 Acute on chronic systolic (congestive) heart failure; I48.0 Paroxysmal atrial fibrillation; I42.8 Other cardiomyopathies; E11.9 Type 2 diabetes mellitus without complications; E78.00 Pure hypercholesterolemia, unspecified; G47.33 Obstructive sleep apnea (adult) (pediatric); E03.9 Hypothyroidism, unspecified; Z79.890 Hormone replacement therapy; Z79.899 Other long term (current) drug therapy; Z79.85 Long-term (current) use of injectable non-insulin antidiabetic drugs; Z87.891 Personal history of nicotine dependence
CPT/HCPCS: 33249; 36415; 71046; 80048; 81001; 85027; 85610; 96372; 99152; 99153; Q9967; A4216; C1894

== ENCOUNTER → 2025-08-01 | Outpatient (CLI) | payer MEDICARE, SELFPAY ==
--- NOTE | 2025-08-01 15:19 | VDLE_ITS ---
Reason For Study Reason For Study: RLE Edema RIGHT GSV is normal. CFV is compressible, spontaneous, phasic, competent and demonstrates normal augmentation. FV is compressible, spontaneous, phasic, competent and demonstrates normal augmentation. POP V is compressible, spontaneous, phasic, competent and demonstrates normal augmentation. T/P Trunk is compressible. PTV is compressible. RT PerV is compressible. Procedure This is a venous duplex using B-mode, color flow and spectral Doppler. Exam performed in department. The exam was diagnostic. A preliminary report was called and/or faxed to [facility]. VL/Venous Duplex US, Unilateral Interpretation Summary Deep veins of the right lower extremity are patent and compressible segmentally . There is no evidence of right lower extremity deep vein thrombosis. Valvular competence appears intact within the p roximal deep venous system on the right . The right great saphenous vein appears patent and compressible segmentally. Ordering Physician: Eliza Jay Referring Physician: Kari Reyes Performed By: Francisco Green RVT
== END | disposition home or self-care (01) ==
LOC: CVS 15:18
PROVIDERS: PCP Nurse Practitioner Family; Referring Provider Nurse Practitioner Family; Visit Provider Nurse Practitioner Family
DX: R60.0 Localized edema (principal)
CPT/HCPCS: 93971

== ENCOUNTER → 2025-08-14 | Outpatient (CLI) | payer MEDICARE, SELFPAY | END | disposition home or self-care (01) | LOC: SL 09:58 | PROVIDERS: PCP Nurse Practitioner Family; Referring Provider Nurse Practitioner Family; Visit Provider Nurse Practitioner Family | DX: G47.33 Obstructive sleep apnea (adult) (pediatric) (principal) | CPT/HCPCS: 98960; G0463 ==